=== PATIENT | female | born 1955 | race Two or more races ===

== ENCOUNTER → 2021-11-15 11:45 | Outpatient (BNVA) | payer MEDICARE, SELFPAY | PROVIDERS: PCP Physician Assistant Medical; Visit Provider Student in an Organized Health Care Education/Training Program | DX: M70.62 Trochanteric bursitis, left hip (principal); H20.9 Unspecified iridocyclitis; M70.61 Trochanteric bursitis, right hip | CPT/HCPCS: 20610; 99202 ==